=== PATIENT | female | born 1990 | race Caucasian/White ===

== ENCOUNTER → 2018-03-11 | Outpatient (CLI) | payer BC ==
[~2018-03-11] MED LIST: IBUP-1050 PO; PRENTAB26 PO
[2018-03-11 16:56] LABS: BASO % 0.5 %; BASO ABS # 0.03 K/uL (0-0.2); EOS % 2.1 %; EOS ABS # 0.12 K/uL (0-0.5); HEMATOCRIT 42.2 % (37-47); HEMOGLOBIN 14.7 g/dL (12.0-16.0); IG# 0.01 K/uL (0.00-0.02); LYMPH % 36.9 %; LYMPH ABS # 2.08 K/uL (1.2-3.4); MEAN CELL VOLUME 87.6 fL (80-100); MEAN CORPUSCULAR HEMOGLOBIN 30.5 pg (25-34); MEAN CORPUSCULAR HGB CONC 34.8 g/dl (32-36); MEAN PLATELET VOLUME 9.3 fL (7.4-10.4); MONO % 6.4 %; MONO ABS # 0.36 K/uL (0.11-0.59); NEUT % 53.9 %; NEUT ABS # 3.04 K/uL (1.4-6.5); PLATELET COUNT 262 K/uL (130-400); RED CELL DISTRIBUTION WIDTH CV 12.3 % (11.5-14.5); RED CELL DISTRIBUTION WIDTH SD 39.3 fL (36.4-46.3); WHITE BLOOD COUNT 5.64 K/uL (4.8-10.8)
[2018-03-11 17:35] LABS: BLOOD UREA NITROGEN 12 mg/dl (7-18); CALCIUM 9.3 mg/dl (8.5-10.1); CARBON DIOXIDE 28 mmol/L (21-32); CREATININE 0.84 mg/dl (0.60-1.20); GLUCOSE 92 mg/dl (70-99); POTASSIUM 3.8 mmol/L (3.5-5.1); SODIUM 139 mmol/L (136-145)
== END | disposition home or self-care (01) ==
LOC: C.LABPBG 15:56
PROVIDERS: ATTEND Family Medicine
DX: R53.83 Other fatigue (principal); R63.5 Abnormal weight gain

== ENCOUNTER 2021-12-19 07:51 | Inpatient (IN) ==
[2021-12-19] MEDS ORDERED: OXYTOCIN 30 UNITS/500 ML BAG IV PRN ×3 (08:04→17:37)
[2021-12-19] MEDS ORDERED: PENICILLIN G POTASSIUM 6 MU in DEXTROSE 5% 250 ML IV STA (08:07)
[2021-12-19 08:27] LABS: Hematocrit (blood only) 35.6 % (37-47); Hemoglobin 11.8 g/dL (12.0-16.0); Mean Corpuscular Hgb Conc 33.1 g/dL (32-36); Mean Corpuscular Volume 90.6 fL (80-100); Mean Platelet Volume 10.5 fL (7.4-10.4); Platelet Count 240 K/uL (130-400); RDW Coefficient of Variation 13.8 % (11.5-14.5); RDW Standard Deviation 45.4 fL (36.4-46.3); Red Blood Count 3.93 M/uL (4.2-5.4); White Blood Count 8.27 K/uL (4.8-10.8)
[2021-12-19] MEDS: LACTATED RINGER'S 1,000 ML IV PRN ×2 (08:45→12:32)
--- NOTE | 2021-12-19 09:39 | History & Physical Report ---
Date of Service December 19, 2021 Assessment & Plan (1) Encounter for induction of labor: Plan: 31 year old at 40 weeks and 2 days coming in for induction of labor. -Vital signs within normal limits. -Started on LR and pitocin. -Penicillin G started for GBS+ status. -Continue to monitor vitals and heart rate monitor. -Epidural if requested by patient. Admission and Anticipated Discharge Date Admission Date: December 19, 2021 History of Present Illness Primary Care Provider: Viviane Griffin DO 31 year old at 40 weeks and 2 days per LMP. Here for induction of labor. No complications to this . Has been attending OB appointments regularly. Takes a vitamin at home. Contractions: 20 minutes apart, irregularly spaced. Fluid or blood: Denies movement: Present. Allergies Allergy/AdvReac Type Severity Reaction Status Date / Time No Known Allergies Allergy Verified 12/18/21 15:21 Home Medications Medication Instructions Recorded Confirmed Type prenat.vits,malena,nad-[id number]-[id number] 1 tab PO DAILY 04/30/21 12/19/21 History breast pump #1 ea 10/21/21 12/18/21 Rx Patient History Medical History Atypical mole Bulimia Metabolic acidosis Starvation ketoacidosis Surgical History History of wisdom tooth extraction Family History Other Crohn's disease Social History (Updated 12/19/21 @ 09:00 by Mily Hampton RN) Smoking Status: Never smoker Hx Alcohol Use: No Hx Substance Use: No Preferred Language: Guatemalan Communication Ability: Effective Visual Impairment: Partially Limited Hearing Ability: Normal Quality Systems Engineer Required: No Beliefs That Will Affect Care: None marital status: marital status details: Rizwan (37) [phone] Current Living Situation: Spouse Current Living Situation Comment: lives with spouse, daughter, and step daughter. 1 dog. current occupational status: employed current occupation: life insurance salesperson Other Information That Helps Us Care for You: No Feels Safe at Home: Yes Safety Concerns: Feels Safe At This Time Do you think of yourself as: straight/heterosexual Gender Identity: Female Assistive Devices: None OB History Past 7 years ago, without complication. Delivered healthy girl at 41 weeks and 3 days. Haq balloon was used at the time. Review of Systems Denies fever, chills, sweats Denies shortness of breath, difficulty breathing, chest pain, palpitations, chest pressure. Denies breast pain. Denies dysuria. Denies headache or changes in vision Physical Exam Physical Exam: General: Alert, oriented. No acute distress. Cardiac: Regular rate and rhythm, no murmurs/rubs/gallops. Respiratory: Clear to auscultation bilaterally a/p, no wheezes/rales/rhonchi. No increased work of breathing. Symmetrical chest rise. No respiratory distress. Pelvic: Dilation 3cm; Effacement 70; Station -[address] Mckinnon Lower Extremities: No lower extremity edema or swelling. No deep calf pain. Jhoan's negative bilaterally Baseline: 125 Variability: moderate Accelerations: Present Decelerations: Not present. Results & Data ([facility]) Vital Signs (Past 12 Hours) Vital Signs Temp Pulse Resp BP 12/19/21 09:15 66 130/76 12/19/21 09:05 36.8 C 20 12/19/21 07:59 36.8 C 91 H 20 125/77 Laboratory Results - Blood type: A+ - Antibody screen: Negative - Hgb: 11.8 - Hct: 35.6 - Wbc: 8.27 - Plt: 240 - Rubella Immune - VDRL/RPR: Non-reactive - Gonorrhea: Not detected - Chlamydia: Not detected - HIV: Negative - HbSAg: Negative - GBS: Positive - Glucose tolerance x 2: 87, 88 Supervising Physician Co-Signing Physician Notes Resident Physician Supervision Note: I interviewed and examined the patient. Discussed with Dr. Lees and agree with findings and plan as documented in the note. Any exceptions or clarifications are listed here: [None] Documented By: Monik Frankel MD, FACOG Resident Activity Tracking Resident Involvement: Resident Care Provided Care Provided: OB Delivery
[2021-12-19] MEDS ORDERED: fentaNYL citrate 100 MCG/2 ML VIAL ONE (12:00)
[2021-12-19] MEDS ORDERED: SODIUM CHLORIDE 0.9% INJ 10 ML VIAL ONE (12:00)
[2021-12-19] MEDS ORDERED: PENICILLIN G POTASSIUM 3 MU in DEXTROSE 5% 100 ML IV PRN (12:00)
[2021-12-19] MEDS ORDERED: ePHEDrine sulfate 50 MG/ML AMP ONE (12:00)
[2021-12-19] MEDS ORDERED: BUPIVACAINE 0.25% 30 ML VIAL ONE (12:00)
[2021-12-19] MEDS ORDERED: fentaNYL 2MCG/ML ROPIVACAINE 1.25MG/ML 100 ML BAG EPI ONE (12:01)
[2021-12-19] MEDS ORDERED: NALOXONE HCL 0.4 MG/1 ML VIAL/CARP IV PRN (12:19)
[2021-12-19] MEDS ORDERED: ePHEDrine sulfate 50 MG/ML AMP IV PRN (12:19)
[2021-12-19] MEDS ORDERED: diphenhydrAMINE 50 MG/ML VIAL IV PRN (12:19)
[2021-12-19] MEDS ORDERED: NALOXONE HCL 1 MG in SODIUM CHLORIDE 0.9% 1000ML 1,000 ML IV PRN (12:19)
[2021-12-19] MEDS ORDERED: ONDANSETRON INJ 2 MG/ML 2 ML VIAL IV PRN (12:19)
[2021-12-19] MEDS ORDERED: fentaNYL 2MCG/ML ROPIVACAINE 1.25MG/ML 100 ML BAG EPI PRN (12:19)
[2021-12-19] MEDS ORDERED: NALBUPHINE HCL INJ 10 MG/ML AMP IV PRN (12:19)
--- NOTE | 2021-12-19 12:19 | Anesthesiology Consultation ---
Date of Service December 19, 2021 Assessment & Plan ASA ASA2 Proposed Anesthesia Anesthesia Type: Labor Epidural Risk / Benefits Reviewed With: PT / POA / Parent / Guardian and Informed Consent Obtained History Height/Weight Height: 5 ft 4 in Weight: 80.649 kg Allergies Allergy/AdvReac Type Severity Reaction Status Date / Time No Known Allergies Allergy Verified 12/18/21 15:21 Medications Home Medications Medication Instructions Recorded Confirmed Last Taken prenat.vits,malena,nga-nxso-shfyk 1 tab PO DAILY 04/30/21 12/19/21 12/19/21 06:30 breast pump #1 ea 10/21/21 12/18/21 Unknown Active Medications Generic Name Dose Route Start Last Admin Trade Name Freq PRN Reason Stop Dose Admin Lactated Ringer's 1,000 mls @ 125 mls/hr 12/19/21 08:04 12/19/21 12:32 Lr IV 12/21/21 08:03 999 mls/hr .Q8H PRN Administration L&D Protocol Protocol Oxytocin 30 units in 500 mls @ 12 mls/hr 12/19/21 08:07 12/19/21 11:20 Pitocin IV 12/21/21 08:06 0.72 units/hr .Q24H PRN 12 mls/hr Labor Induction/Augmentation Titration Protocol 0.72 UNITS/HR Past Medical History Medical History Atypical mole Bulimia Metabolic acidosis Starvation ketoacidosis Past Family History Family History Other Crohn's disease Past Surgical History Surgical History History of wisdom tooth extraction Social History Smoking Status: Never smoker Hx Alcohol Use: No Hx Substance Use: No substance use type: does not use Physical Exam Vital Signs Last Vital Signs Temp 36.8 C 12/19/21 09:05 Pulse 75 12/19/21 12:42 Resp 20 12/19/21 10:37 BP 128/81 12/19/21 12:42 Pulse Ox 99 12/19/21 12:39 Testing Laboratory Results 12/19/21 08:17
--- NOTE | 2021-12-19 17:34 | Delivery Summary ---
Vaginal Delivery Summary Date of Service December 19, 2021 Vaginal Delivery Summary [facility] Patient is a 31-year-old 2 para 1-0-0-1 white female who presents for induction of labor because of postterm . Pitocin augmentation of her labor was begun and she received prophylaxis for GBS carrier status. Membranes ruptured for clear fluid spontaneously. She received effective epidural analgesia and progressed to full dilation. She pushed effectively over intact perineum for delivery of a viable female . A loose nuchal cord was reduced prior to delivery of the infant's shoulders. The rest of the infant delivered easily and was placed on the mother's abdomen for further attention and drying. The infant was vigorous after stimulation and moving all 4 limbs. The cord was clamped and cut after approximately 30 seconds. After cord blood was obtained the placenta was expressed intact with a three-vessel cord. The superficial abrasion on the right labia which was not bleeding and therefore not repaired. bleeding was controlled with fundal massage and dilute Pitocin. Estimated blood loss was 300 cc. Mother and infant were doing well after delivery. [facility] [place] Delivery Type Details: [facility]
[2021-12-19] MEDS ORDERED: ACETAMINOPHEN 325 MG TAB PO PRN (17:37)
[2021-12-19] MEDS ORDERED: BENZOCAINE 20% AER SPR 82.5 GM CAN EXT PRN (17:37)
[2021-12-19] MEDS ORDERED: SUPERCREAM 0.870% 15 GM JAR EXT PRN (17:37)
[2021-12-19] MEDS ORDERED: HYDROCORTISONE ACETATE 25 MG SUPP PR PRN (17:37)
[2021-12-19] MEDS ORDERED: DIPHTHERIA/TETANUS/PERTUSSIS 0.5 ML SYR/VIAL IM ONE (17:37)
[2021-12-19] MEDS ORDERED: oxyCODONE/ACETAMINOPHEN 5mg/325mg TAB PO PRN (17:37)
[2021-12-19] MEDS ORDERED: bisacodyL 10 MG SUPP PR PRN (17:37)
--- NOTE | 2021-12-19 18:42 | Anesthesiology Progress Note ---
Date of Service December 19, 2021 Anesthesia Post Procedure Vital Signs Vital Signs: Temp Pulse Resp BP Pulse Ox 12/19/21 18:30 20 12/19/21 18:29 86 135/68 12/19/21 18:14 77 156/86 H 12/19/21 18:02 65 20 171/70 H 12/19/21 17:59 72 177/99 H 12/19/21 17:44 62 157/74 H 12/19/21 17:30 67 20 146/68 H 12/19/21 17:16 36.8 C 72 20 159/80 H 12/19/21 16:59 80 98 12/19/21 16:54 85 97 12/19/21 16:49 83 99 12/19/21 16:45 82 93 12/19/21 16:44 77 97 12/19/21 16:39 76 99 12/19/21 16:34 65 97 12/19/21 16:30 63 141/86 H 12/19/21 16:29 65 99 12/19/21 16:24 63 96 12/19/21 16:19 54 L 99 12/19/21 16:14 54 L 130/66 100 12/19/21 16:09 55 L 100 12/19/21 16:04 60 100 12/19/21 16:01 58 L 136/66 12/19/21 15:59 56 L 139/70 100 12/19/21 15:54 58 L 100 12/19/21 15:49 58 L 100 12/19/21 15:45 60 158/79 H 12/19/21 15:44 59 L 100 12/19/21 15:39 61 100 12/19/21 15:34 69 98 12/19/21 15:32 65 144/85 H 12/19/21 15:31 67 151/98 H 12/19/21 15:29 36.7 C 70 20 98 12/19/21 15:24 65 98 12/19/21 15:19 57 L 97 12/19/21 15:15 62 16 133/75 12/19/21 15:14 63 98 12/19/21 15:09 65 98 12/19/21 15:04 70 98 12/19/21 14:59 62 130/72 97 12/19/21 14:54 68 98 12/19/21 14:49 65 98 01/20/22 14:44 61 135/73 97 12/19/21 14:39 69 98 12/19/21 14:34 58 L 99 12/19/21 14:29 63 99 12/19/21 14:24 65 98 12/19/21 14:19 68 99 12/19/21 14:15 68 109/66 12/19/21 14:14 72 97 12/19/21 14:09 74 98 12/19/21 14:04 79 98 12/19/21 13:59 36.8 C 63 20 114/81 99 12/19/21 13:54 82 99 12/19/21 13:49 70 98 12/19/21 13:44 62 111/77 96 12/19/21 13:39 59 L 96 12/19/21 13:34 70 95 12/19/21 13:30 72 116/77 12/19/21 13:29 61 95 12/19/21 13:24 61 96 12/19/21 13:19 62 97 12/19/21 13:15 62 116/77 12/19/21 13:14 62 96 12/19/21 13:09 56 L 97 12/19/21 13:04 63 97 12/19/21 12:59 67 128/75 96 12/19/21 12:54 59 L 97 12/19/21 12:49 71 97 12/19/21 12:44 87 98 12/19/21 12:43 68 123/79 12/19/21 12:42 75 128/81 12/19/21 12:39 73 125/80 99 12/19/21 12:38 76 130/81 12/19/21 12:35 90 127/81 12/19/21 12:34 81 99 12/19/21 12:29 76 98 12/19/21 12:24 68 100 12/19/21 12:21 76 123/75 12/19/21 11:39 71 135/86 12/19/21 10:37 70 20 130/76 12/19/21 10:30 71 137/97 12/19/21 10:17 69 129/85 12/19/21 10:02 67 121/80 12/19/21 09:45 65 121/78 12/19/21 09:30 71 134/81 12/19/21 09:15 66 20 130/76 12/19/21 09:05 36.8 C 20 12/19/21 07:59 36.8 C 91 H 20 125/77 Pain Intensity Abdomen: Pain Intensity: 0 Transfer of Care Handoff Completed per policy Notes Mental Status: alert / awake / arousable and participated in evaluation Patient Amnestic to Procedure: Yes Nausea / Vomiting: adequately controlled Pain: adequately controlled Airway Patency, RR, SpO2: stable & adequate BP & HR: stable & adequate Hydration State: stable & adequate Anesthetic Complications: no major complications apparent and Pt Satisfied with anesthetic care
[2021-12-19] MEDS: IBUPROFEN 600 MG TAB PO PRN ×2 (19:05→23:49)
[2021-12-20] MEDS: DOCUSATE SODIUM 100 MG CAP PO SCH ×2 (00:29→08:17)
--- NOTE | 2021-12-20 06:12 | Obstetrical Progress Note ---
Date of Service <Otilio Lees DO - Last Filed: 12/20/21 08:05> December 20, 2021 Assessment & Plan <Otilio Lees DO - Last Filed: 12/20/21 08:05> (1) Encounter for care and examination after delivery: 31 yo post day 1 from vaginal delivery, doing well. -Continue routine post care. - vital signs reviewed and WNL. (Tmax 37.0) -Blood type A+, GBS positive, Rubella Immune -Encourage ambulation, monitor and control pain with Motrin, tylenol PRN, resume regular diet, monitor lochia. -encourage breast feeding. Breast pump - already has. -hemoglobin 11.2. <Monik Frankel MD, FACOG - Last Filed: 12/20/21 10:00> (1) Encounter for care and examination after delivery: Subjective <Otilio Lees DO - Last Filed: 12/20/21 08:05> Ambulation: ambulating normally Voiding: no voiding problems Passing Gas:: Yes Diet Tolerance:: regular diet Lochia:: Small Feeding Type:: breast feeding Current Pain Level(1-10): 0 Review of Systems Denies fever, chills, sweats Denies shortness of breath, difficulty breathing, chest pain, palpitations, chest pressure. Denies breast pain. Denies dysuria. Denies headache or changes in vision Physical Exam <Otilio Lees DO - Last Filed: 12/20/21 08:05> General: Alert, oriented. No acute distress. Cardiac: Regular rate and rhythm, no murmurs/rubs/gallops. Respiratory: Clear to auscultation bilaterally a/p, no wheezes/rales/rhonchi. No increased work of breathing. Symmetrical chest rise. No respiratory distress. Abdomen: Soft, nontender, nondistended. Bowel sounds present. Uterus: Uterine fundus firm, palpable 2 cm below umbilicus. Lower Extremities: No lower extremity edema or swelling. No deep calf pain. Jhoan's negative bilaterally Results & Data ([facility]) <Otilio Lees DO - Last Filed: 12/20/21 08:05> Vital Signs (Past 12 Hours) Vital Signs Temp Pulse Pulse Resp BP BP Pulse Ox 01/21/22 03:30 36.3 C L 65 16 127/84 99 12/20/21 00:00 36.7 C 64 16 138/93 98 12/19/21 20:30 37.0 C 63 16 136/81 98 12/19/21 19:29 75 141/65 H 12/19/21 19:27 18 12/19/21 19:14 68 143/65 H 12/19/21 19:00 20 12/19/21 18:59 95 H 148/66 H 12/19/21 18:44 85 151/68 H 12/19/21 18:30 20 12/19/21 18:29 86 135/68 12/19/21 18:14 77 156/86 H <Monik Frankel MD, FACOG - Last Filed: 12/20/21 10:00> Co-Signing Physician Notes Resident Physician Supervision Note: I was present with Dr. Lees during the history and exam. I discussed the case with the resident and agree with the findings and plan as documented in the note. Any exceptions or clarifications are listed here: [None] Documented By: Monik Frankel MD, FACOG Resident Activity Tracking <Otilio Lees DO - Last Filed: 12/20/21 08:05> Resident Involvement: Resident Care Provided Care Provided: OB Delivery
[2021-12-20] MEDS: IBUPROFEN 600 MG TAB PO PRN ×3 (06:40→17:55)
[2021-12-20 07:08] LABS: Hemoglobin 11.2 g/dL (12.0-16.0); Mean Corpuscular Hgb Conc 32.9 g/dL (32-36); Mean Corpuscular Volume 91.2 fL (80-100); Mean Platelet Volume 10.1 fL (7.4-10.4); Platelet Count 210 K/uL (130-400); RDW Coefficient of Variation 13.8 % (11.5-14.5); RDW Standard Deviation 45.4 fL (36.4-46.3); Red Blood Count 3.73 M/uL (4.2-5.4); White Blood Count 9.64 K/uL (4.8-10.8)
[2021-12-20] MEDS ORDERED: PRENATAL VITAMIN 1 TAB PO SCH (08:00)
[2021-12-20] MEDS ORDERED: bisacodyL 5 MG TABEC PO SCH (20:00)
== END 2021-12-20 19:00 | disposition home or self-care (01) | DRG 807 ==
LOC: 4S1 07:54 → 4S2 20:21
DX: O69.82X0 Labor and delivery complicated by other cord entanglement, without compression, not applicable or unspecified; Z3A.40 40 weeks gestation of pregnancy; O48.0 Post-term pregnancy; O99.824 Streptococcus B carrier state complicating childbirth; Z37.0 Single live birth